=== PATIENT | male | born 1945 | race Caucasian/White ===

== ENCOUNTER 2021-07-01 09:35 | Observation (INO) | payer OTHER ==
[~2021-07-01] VITALS: Ht 177.8 cm; Wt 106.6 kg
[2021-07-01 10:39] LABS: HEMATOCRIT 45.9 % (42.0-52.0); HEMOGLOBIN 14.8 gm/dL (14.0-18.0); MCH 28.6 pg (26.0-34.0); MCHC 32.3 g/dL (28.0-37.0); MCV 88.5 fL (80.0-100.0); RBC 5.19 mil/uL (4.50-6.00); RDW 14.1 % (10.5-14.5); WBC 8.2 thou/uL (4.0-11.0)
[2021-07-01 10:45] LABS: CALCIUM 9.1 mg/dL (8.5-10.1); CREATININE 1.3 mg/dL (0.7-1.3); POTASSIUM 4.3 mmol/L (3.5-5.1)
[2021-07-01] MEDS ORDERED: ASA81BEC PO (11:26)
[2021-07-01] MEDS ORDERED: AMARYL4 MG PO (11:26)
[2021-07-01] MEDS ORDERED: LANTUS SUBQ (11:27)
[2021-07-01] MEDS ORDERED: SUPER THERAVIT1 EACH PO (11:27)
[2021-07-01] MEDS ORDERED: LISINOPRIL20 MG PO (11:27)
[2021-07-01] MEDS ORDERED: WEGOVY0.25 MG/0. SUBQ (11:28)
[2021-07-01] MEDS ORDERED: EFFIENT10 MG PO (12:52)
[2021-07-01] MEDS ORDERED: CRESTOR20 MG PO (12:52)
[2021-07-01] MEDS ORDERED: TOPROL XL25 MG PO (12:58)
[2021-07-01 17:10] VITALS: BP 130/66
[2021-07-01 19:27] VITALS: BP 138/59
--- NOTE | 2021-07-01 19:53 | NUR ---
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 ADMISSION COMPLETED. PT IS AXOX4, PLEASANT; VSS, AFEBRILE, SR ON THE MONITOR. PT R GROIN SITE, C/D/I, NO HEMATOMA. PT BEDREST COMPLETED WHILE IN RECOVERY. PT CALLED AND DISCUSSED POSS D/C TIME IN THE AM. POC IS TO CONTINUE TO MONITOR VS, GROIN SITE. PT TO D/C IN AM PER MD. CARDIAC MEDS TO RESTART IN AM. LOW FALL PRECAUTIONS IN PLACE. NO CONCERNS AT THIS TIME.
[2021-07-01 23:24] VITALS: BP 141/52
[2021-07-02 03:01] VITALS: BP 127/66
--- NOTE | 2021-07-02 03:58 | NUR ---
RECEIVED THIS PATIENT AT 1900H.PATIENT IS ALERT AND ORIENTED X4.ON ROOM AIR BREATHING SPONTANEOUSLY.NOT IN PAIN OR DISTRESS.WITH POST CATH SITE AT RIGHT GROIN C/D/I.ALL NEEDS ATTENDED.TO CONTINOUSLY MONITOR.
[2021-07-02 05:03] LABS: HEMATOCRIT 41.8 % (42.0-52.0); HEMOGLOBIN 13.7 gm/dL (14.0-18.0); MCH 28.7 pg (26.0-34.0); MCHC 32.8 g/dL (28.0-37.0); MCV 87.6 fL (80.0-100.0); RBC 4.77 mil/uL (4.50-6.00); WBC 7.4 thou/uL (4.0-11.0)
[2021-07-02 05:18] LABS: CALCIUM 8.5 mg/dL (8.5-10.1); CREATININE 1.2 mg/dL (0.7-1.3); TOTAL BILIRUBIN 0.9 mg/dL (0.2-1.0); TOTAL PROTEIN 6.6 g/dL (6.4-8.2)
[2021-07-02 07:13] VITALS: BP 135/69
--- NOTE | 2021-07-02 07:45 | EKG ---
[place] [address] [facility] [place] [address] ELECTROCARDIOGRAM REPORT Name: WOLFGANG ESQUIVEL Room #: 202-[facility] M.R.#: [id number] Admission: 07/01/21 Attend Phys: Vamshi Tellez MD, Discharge: Date of : 43 Report #: [id number] 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
[2021-07-02 08:23] VITALS: BP 135/69
--- NOTE | 2021-07-02 09:27 | 2DMMODE ---
[facility] [place] [address] 2 D/M-MODE ECHOCARDIOGRAM Name: WOLFGANG ESQUIVEL Room #: 202-P ADM Justen M.R.#: [id number] Admission: 07/01/21 Attend Phys: Vamshi Tellez MD, Discharge: Date of : 43 Report #: [id number] THIS REPORT FOR: cc: DENNIS FERNANDO FAMILY PHYSICIAN or PCP Nicolas Nguyen MD [facility] ~ APPROVED REPORT Study performed: 07/02/2021 08:37:14 EXAM: Comprehensive 2D, Doppler, and color-flow Echocardiogram Patient Location: Bedside Room #: 202 Status: routine BSA: 2.24 HR: 89 bpm BP: 135/69 mmHg Rhythm: NSR Other Information Study Quality: Adequate Indications CAD Chest Pain S^P STENT 2D Dimensions IVSd: 11.66 (7-11mm) LVOT Diam: 23.09 (18-24mm) LVDd: 44.38 mm PWd: 12.09 (7-11mm) Ascending Ao: 33.37 (22-36mm) LVDs: 27.29 (25-40mm) Left Atrium: 32.73 (27-40mm) Aortic Root: 32.19 mm IVC: 13.00 mm Volumes Left Atrial Volume (Systole) Single Plane 4CH: 30.53 mL Single Plane 2CH: 38.94 mL LA ESV Index: 19.00 mL/m2 Aortic Valve AoV Peak Yossi.: 1.15 m/s AO Peak Gr.: 5.25 mmHg LVOT Max P.06 mmHg LVOT Max V: 0.87 m/s [facility] [address] [place] [address] 2 D/M-MODE ECHOCARDIOGRAM Name: WOLFGANG ESQUIVEL Room #: 202-P [facility]#: [id number] Admission: 07/01/21 Attend Phys: Vamshi Tellez, Discharge: Date of : 43 Report #: [id number] TOBIN Vmax: 3.19 cm2 Mitral Valve E/A Ratio: 0.7 MV Decel. Time: 226.38 ms MV E Max Yossi.: 0.58 m/s MV A Yossi.: 0.87 m/s MV PHT: 65.65 ms IVRT: 115.34 ms Pulmonary Valve PV Peak Yossi.: 0.83 m/s PV Peak Gr.: 2.73 mmHg Pulmonary Vein P Vein S: 0.24 m/s P Vein A: 0.21 m/s P Vein D: 0.14 m/s P Vein A Dur.: 120.0 msec P Vein S/D Ratio: 1.71 Left Ventricle The left ventricle is normal size. There is normal LV segmental wall motion. There is normal left ventricular wall thickness. Left ventricular systolic function is normal. The left ventricular ejection fraction is within the normal range. LVEF is 60-65%. Grade I - abnormal relaxation pattern. Right Ventricle The right ventricle is normal size. The right ventricular systolic function is normal. Atria The left atrium size is normal. The right atrium size is normal. Aortic Valve The aortic valve is normal in structure. No aortic regurgitation is present. There is no aortic valvular stenosis. Mitral Valve The mitral valve is normal in structure. There is no mitral valve regurgitation noted. No evidence of mitral valve stenosis. Tricuspid Valve The tricuspid valve is normal in structure. There is no tricuspid valve regurgitation noted. Pulmonic Valve [facility] [place] [address] 2 D/M-MODE ECHOCARDIOGRAM Name: WOLFGANG ESQUIVEL Room #: 202-P [facility] [place] .R.#: [id number] Admission: 07/01/21 Attend Phys: Vamshi Tellez, Discharge: Date of : 43 Report #: [id number] The pulmonary valve is normal in structure. There is no pulmonic valvular regurgitation. Great Vessels The aortic root is normal in size. IVC is normal in size and collapses >50% with inspiration. Pericardium There is no pericardial effusion. <Conclusion> Normal left ventricle size/wall thickness Ejection fraction 60% Grade 1 diastolic dysfunction Normal right ventricle size/function Normal atrial size Aortic valve sclerosis without stenosis Normal mitral valve structure and function No tricuspid valve insufficiency No pericardial effusion Normal aortic root size. <ELECTRONICALLY SIGNED> By: Nicolas Nguyen MD, FACC 07/02/21925 5 5 Nicolas Nguyen MD, [facility] /INF
[2021-07-02 11:24] VITALS: BP 149/61
[2021-07-02 11:30] VITALS: BP 135/69
--- NOTE | 2021-07-02 12:26 | NUR ---
DISCHARGED PATIENT. EXPLAINED DISCHARGE INSTRUCTIONS TO PATIENT AND SPOUSE. HIGHLIGHTED UPCOMING APPOINTMENTS AND MEDICATION CHANGES. PATIENT AND SPOUSE STATED THEY UNDERSTOOD AND DID NOT HAVE ANY FURTHER QUESTIONS. 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
[2021-07-02 13:07] VITALS: BP 135/69
--- NOTE | 2021-07-09 17:14 | CATHLAB ---
[facility] [place] [address] INVASIVE PROCEDURE REPORT Name: WOLFGANG ESQUIVEL Room #: 202-P [facility] Justen Mandujano#: [id number] Admission: 07/01/21 Attend Phys: Vamshi Tellez MD, Discharge: 07/02/21 Date of : 43 Report #: [id number] THIS REPORT FOR: cc: DENNIS FERNANDO FAMILY PHYSICIAN or PCP Vamshi Tellez MD [facility] ~ APPROVED REPORT Study performed: 07/01/2021 10:17:25 Patient Details Patient Status: Out-Patient Room #: The patient is a 76 year-old male Event Personnel Vamshi Tellez Teletypesetter, Janae Knapp RTR Monitor, Katy Rivera RTR, BIKE ASSEMBLER Dylon Lopez Jessica RN RN, Fredrick Colon RN RN, Deann Bacon RTR Technology Training Associate Procedures Performed Art Access - R femoral artery* Left Heart Cath w/or w/o Coronaries [id number] [facility] Aortogram Abdominal Peripheral Angio 730967 YASEMIN Place w/wo Plasty Single LAD 682933 Hemostasis w/ Mynx 17632 Initial Mod Sed Same Phys/QHP Gr5y 892986 54126 Mod Sed Same Phys/QHP Ea 540776 Procedure Narrative The Right Groin^ was infiltrated with 1% Lidocaine subcutaneous anesthesia. A PINNACLE 6FR Sheath #[id number] sheath was inserted into the RFA^. Coronary angiography was performed using coronary diagnostic catheters. The right coronary system was accessed and visualized with a JR4 catheter. The left coronary system was accessed and visualized with a JL4 catheter. The left ventricle was accessed and visualized with a STRAIGHT PIGTAIL catheter. Left ventriculogram was performed in 30 degree projection. An aortogram of the abdominal aorta was performed. Closure device was deployed with a Fr MYNXGRIP 6/7F #[id number]. The patient tolerated the procedure well and there were no complications associated with the procedure. There was no hematoma. Intraoperative Conscious Sedation Sedation start time: 11:35 Case end Time: 12:34 Fentanyl 50 mcg Versed [address] [address] INVASIVE PROCEDURE REPORT Name: ESQUIVELWOLFGANG Room #: 202-P [facility]#: [id number] Admission: 07/01/21 Attend Phys: Vamshi Tellez, Discharge: 07/02/21 Date of : 43 Report #: [id number] Fluoro Time: 10.38 minutes Dose: DAP 57981.80 cGycm2 1844 mGy Contrast Type and Amount: Visipaque 205 ml Hemodynamics The aortic pressure is 156/71 mmHg with a mean of 100 mmHg. The left ventricular pressure is 164/5 mmHg with a mean of mmHg. The left ventricular end diastolic pressure is 12 mmHg. PCI Technique Lesion Percutaneous coronary intervention was performed on the proximal left anterior descending artery segment. A LAUNCHER 6FR EBU 3.75 #[id number] Guide Catheter was used to engage the ostium. A Luge Wire .014 x 182CM #[id number] Interventional Guidewire was used to cross the lesion. BALLOON DILATION A Balloon catheter Sprinter OTW 2.75 x 12 #[id number] was inserted and inflated up to 14.00atm for 28seconds. Additional Inflation: 16.00atm for 22seconds. STENT DEPLOYMENT A drug-eluting stent RESOLUTE DELORES OTW 3.5 X 12 #[id number] was inserted and inflated up to 14.00atm for 27seconds. Additional Inflation: 18.00atm for 26seconds. Conclusion #1 Successful PTCA stent of a distal left main ostial LAD 98% stenosis placement of a 3.5 x 12 resolute which extended from distal left main to LAD LIA grade III flow. Jailing of the circumflex remained widely patent and brisk flow. #2 proximal left main with a 30% irregularity. #3 circumflex OM nondominant with mild disease. It was jailed by the stent without any significant impedance and flow into the nondominant circumflex. #4 dominant right coronary artery with a significant calcified segment in the proximal at a tortuous turn. And then a mid vessel 95% it is dominant but relatively small in caliber overall. I made a limited attempt at crossing the proximal segment will need better guide support possibly guide liner and/or dual wire to get to the mid vessel lesion. This is not the culprit and we will follow this in the office in the next month or so about possible intervention or continued medical therapy. High risk nature of the intervention here would not want to cause any hemodynamic compromise will wait for possible intervention at later date. [facility] [address] [place] [address] INVASIVE PROCEDURE REPORT Name: WOLFGANG ESQUIVEL #: 202-P [facility] M.R.#: [id number] Admission: 07/01/21 Attend Phys: Vamshi Tellez, Discharge: 07/02/21 Date of : 43 Report #: [id number] #5 normal left ventricular size systolic function is normal 60%. 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 Will obtain noninvasive imaging for more accurate calculation of size. Recommendations and plan: Continue aggressive risk factor modification. Dual antiplatelet therapy has been initiated. Patient transferred to CCU in stable condition resolution of EKG changes and pain-free. <ELECTRONICALLY SIGNED> By: Vamshi Tellez MD, FACC 07/09/211712 12 12 Vamshi Tellez MD, FACC /INF
== END 2021-07-02 13:20 | disposition home or self-care (01) ==
LOC: CATH 09:35 → 2N 14:05 → CATH 18:07 → 2N 18:09
PROVIDERS: Nurse Practitioner Adult Health; ADMIT Internal Medicine Cardiovascular Disease; ATTEND Internal Medicine Cardiovascular Disease
DX: I25.10 Atherosclerotic heart disease of native coronary artery without angina pectoris (principal); E78.5 Hyperlipidemia, unspecified; I10 Essential (primary) hypertension; E11.9 Type 2 diabetes mellitus without complications; E78.00 Pure hypercholesterolemia, unspecified; Z88.0 Allergy status to penicillin; Z88.1 Allergy status to other antibiotic agents

== ENCOUNTER → 2021-07-30 | Outpatient (CLI) | payer OTHER ==
[~2021-07-30] MED LIST: AMARYL4 MG PO; ASA81BEC PO; CRESTOR20 MG PO; EFFIENT10 MG PO; LANTUS SUBQ; LISINOPRIL20 MG PO; SUPER THERAVIT1 EACH PO; TOPROL XL25 MG PO; WEGOVY0.25 MG/0. SUBQ
== END ==
LOC: SJCVCIMAG 10:24
PROVIDERS: ATTEND Internal Medicine Cardiovascular Disease
DX: R94.31 Abnormal electrocardiogram [ECG] [EKG] (principal); I49.1 Atrial premature depolarization; I71.4 Abdominal aortic aneurysm, without rupture; I25.10 Atherosclerotic heart disease of native coronary artery without angina pectoris; I10 Essential (primary) hypertension; E11.9 Type 2 diabetes mellitus without complications; E78.00 Pure hypercholesterolemia, unspecified; R07.9 Chest pain, unspecified; Z82.49 Family history of ischemic heart disease and other diseases of the circulatory system; Z90.49 Acquired absence of other specified parts of digestive tract; Z98.890 Other specified postprocedural states; Z79.82 Long term (current) use of aspirin; Z79.899 Other long term (current) drug therapy; Z88.0 Allergy status to penicillin; Z88.8 Allergy status to other drugs, medicaments and biological substances

== ENCOUNTER 2021-08-12 07:00 | Observation (INO) | payer OTHER ==
[~2021-08-12] VITALS: Ht 177.8 cm; Wt 103.9 kg
[2021-08-12 07:51] VITALS: BP 158/76
[2021-08-12 08:03] LABS: HEMATOCRIT 42.3 % (42.0-52.0); HEMOGLOBIN 13.9 gm/dL (14.0-18.0); MCH 28.4 pg (26.0-34.0); MCHC 32.9 g/dL (28.0-37.0); MCV 86.3 fL (80.0-100.0); RBC 4.9 mil/uL (4.50-6.00); RDW 14.1 % (10.5-14.5); WBC 9.1 thou/uL (4.0-11.0)
--- NOTE | 2021-08-12 08:03 | EKG ---
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: : 1945 Requested By: Vamshi Tellez Order Number: [id number] MD: Luis Duncan Measurements Intervals [place] Rate: 80 P: 68 NH: 198 QRS: 10 QRSD: 91 T: 54 QT: 395 QTc: 456 Interpretive Statements Sinus rhythm Frequent premature atrial complexes Minimal ST depression, lateral leads Compared to ECG 07/02/2021 07:23:54 No significant change was found Electronically Signed On 08-12-2021 8:03:05 GREEN END WORKER by Luis Duncan [email or web address] <ELECTRONICALLY SIGNED> By: Luis Duncan MD, [facility] 08/12/21 08 0735 4 Luis Duncan MD, FACC /EPI
[2021-08-12 08:30] LABS: CALCIUM 9.2 mg/dL (8.5-10.1); CREATININE 1.4 mg/dL (0.7-1.3); POTASSIUM 4.3 mmol/L (3.5-5.1)
--- NOTE | 2021-08-12 09:50 | NUR ---
PT TO CV HOLDING RM 1 A/OX3 WITH NO C/O. MONITOR APPLYED AND PT HAS NO FURTHER REQUEST AT THIS TIME.
--- NOTE | 2021-08-12 10:08 | NUR ---
BREAKFEAST TRAY PROVIDED. PTS AT BEDSIDE.
--- NOTE | 2021-08-12 17:37 | CATHLAB ---
[facility] [place] [address] INVASIVE PROCEDURE REPORT Name: WOLFGANG ESQUIVEL Room #: 214-P [facility] Justen Mandujano#: [id number] Admission: 08/12/21 Attend Phys: Vamshi Tellez MD, Discharge: Date of : 43 Report #: [id number] THIS REPORT FOR: cc: NO FAMILY PHYSICIAN or PCP NO FAMILY PHYSICIAN or PCP Vamshi Tellez MD [facility] ~ APPROVED REPORT Study performed: 08/12/2021 07:33:46 Patient Details Patient Status: Out-Patient Room #: The patient is a 76 year-old male Event Personnel Vamshi Tellez Suspension Cord Tier, Deann Bacon RTR Monitor, Katy Rivera RTR, FUR BLOWING MACHINE OPERATOR Monitor, Janae Knapp RTR Scrub, Fredrick Colon RN training intern Performed YASEMIN Place w/wo Plasty Single RCA 304555 Coronary Angiography Only 9908591 [facility] Art Access - R femoral artery* Hemostasis w/ Mynx 19813 Initial Mod Sed Same Phys/QHP Gr5y 464265 03140 Mod Sed Same Phys/QHP Ea 857721 Indication Chest pain Procedure Narrative The Right Groin^ was infiltrated with 1% Lidocaine subcutaneous anesthesia. A 6 FR sheath was inserted into the RFA^. Coronary angiography was performed using coronary diagnostic catheters. The right coronary system was accessed and visualized with a LAUNCHER 6FR JACQUELINE #[id number] catheter. The left coronary system was accessed and visualized with a 6FR JL4 #664960 catheter. Closure device was deployed with a 6 Fr MYNXGRIP 6/7F #[id number]. The patient tolerated the procedure well and there were no complications associated with the procedure. There was no hematoma. Intraoperative Conscious Sedation Sedation start time: 843 Case end Time: 935 Fentanyl 75 mcg Versed 3.[address] [address] INVASIVE PROCEDURE REPORT Name: WOLFGANG ESQUIVEL Room #: 214-P [facility] IN ..#: [id number] Admission: 08/12/21 Attend Phys: Vamshi Tellez, Discharge: Date of : 43 Report #: [id number] Fluoro Time: 11.56 minutes Dose: DAP 73558.30 cGycm2 1584 mGy Contrast Type and Amount: Visipaque 120 ml Hemodynamics The aortic pressure is 147/70 mmHg with a mean of 94 mmHg. PCI Technique Lesion Percutaneous coronary intervention was performed on the mid right coronary artery. A LAUNCHER 6FR JACQUELINE #331300 Guide Catheter was used to engage the ostium. A Luge Wire .014 x 182CM #[id number] Interventional Guidewire was used to cross the lesion. BALLOON DILATION A Balloon catheter Sprinter OTW 2.5 x 12 #[id number] was inserted and inflated up to 8.00atm for 8seconds. Additional Inflation: 14.00atm for 22seconds. Additional Inflation: 16.00atm for 34seconds. STENT DEPLOYMENT A drug-eluting stent RESOLUTE DELORES OTW 2.75 X 8 #[id number] was inserted and inflated up to 18.00atm for 31seconds. Conclusion #1 Successful PTCA stent of a subtotaled mid RCA stenosis. Complicated by proximal tortuosity and calcification moderate proximal narrowing. Multiple wires and guides were utilized. Eventually placement of a 2.75 x 8 resolute Oxford stent postdilated 3.0 mm LIA grade III flow. The proximals calcified segment remains in the 60 to 70% range did not intervene in that proximal segment. It is not flow-limiting. #2 left main free of disease giving rise to LAD and circumflex. #3 the LAD extends to the apex there is a recently placed proximal stent placed in June 2021 remains widely patent and this vessel is widely patent around the apex. #4 small nondominant circumflex artery no occlusive disease Recommendations and plan: Continue aggressive risk factor modification. Continue dual antiplatelet therapy. Patient has resolution of EKG and chest pain changes. Transfer to CCU to follow post coronary stent protocol hemodynamically stable. Proximal RCA segment is calcified and moderately diseased we will continue to treat this medically. It could be intervened on we will [address] [address] INVASIVE PROCEDURE REPORT Name: WOLFGANG ESQUIVEL Room #: 214-P [facility] IN M.R.#: [id number] Admission: 08/12/21 Attend Phys: Vamshi Tellez, Discharge: Date of : 43 Report #: [id number] follow this up with stress testing suspect this is now nonischemic with the mid vessel stent placement. <ELECTRONICALLY SIGNED> By: Vamshi Tellez MD, FACC 08/12/21 1737 36 173 Vamshi Tellez MD, FACC /INF
[2021-08-12 20:11] VITALS: BP 150/94
[2021-08-13 00:25] VITALS: BP 142/74
[2021-08-13 03:48] LABS: HEMOGLOBIN 13.1 gm/dL (14.0-18.0); MCH 28.4 pg (26.0-34.0); MCHC 32.8 g/dL (28.0-37.0); MCV 86.5 fL (80.0-100.0); RBC 4.63 mil/uL (4.50-6.00); RDW 14.4 % (10.5-14.5); WBC 9.9 thou/uL (4.0-11.0)
[2021-08-13 04:44] VITALS: BP 135/61
[2021-08-13 05:12] LABS: ALBUMIN 3.1 g/dL (3.4-5.0); CALCIUM 8.4 mg/dL (8.5-10.1); CREATININE 1.2 mg/dL (0.7-1.3); POTASSIUM 4.4 mmol/L (3.5-5.1); TOTAL BILIRUBIN 0.8 mg/dL (0.2-1.0); TOTAL PROTEIN 6.5 g/dL (6.4-8.2)
[2021-08-13 07:30] VITALS: BP 142/73
--- NOTE | 2021-08-13 07:40 | NUR ---
ALERT AND ORIENTED, SA ON TELE, DENIES GIUSEPPE RAidan GROIN SITE CDI, NO HEMATOMA, VSS, NO DISTRESS NOTED, PASSED ON REPORT TO DAY RN
--- NOTE | 2021-08-13 08:04 | EKG ---
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
[2021-08-13 08:51] VITALS: BP 142/73
--- NOTE | 2021-08-13 11:33 | NUR ---
PATIENT DISCHARGED HOME WITH PROVIDING TRANSPORTATION. ALL PERSONAL BELONGINGS SENT WITH PATIENT. PATIENT ACCOMPANIED TO FROM DOOR BY NURSE VIA WHEELCHAIR. PATIENT VERBILIZED UNDERSTANDING OF DISCHARGE INSTRUCTIONS AND FOLLOW UP APPOINTMENT INFORMATION PROVIDED. PATIENT WAS GIVEN THE OPORTUNITY TO ASK QUESTIONS. ALL QUESTIONS AWNSERED TO PATIENT SATISFACTION. PATIENT IN STABLE CONDITION UPON DISCHARGE.
== END 2021-08-13 11:15 | disposition home or self-care (01) ==
LOC: CATH 07:00 → 2N 15:31 → CATH 15:43 → 2N 08-13 11:15
PROVIDERS: Nurse Practitioner Adult Health; ADMIT Internal Medicine Cardiovascular Disease; ATTEND Internal Medicine Cardiovascular Disease
DX: I25.10 Atherosclerotic heart disease of native coronary artery without angina pectoris (principal); I10 Essential (primary) hypertension; E11.9 Type 2 diabetes mellitus without complications; E78.00 Pure hypercholesterolemia, unspecified; Z79.82 Long term (current) use of aspirin; Z79.4 Long term (current) use of insulin; Z79.899 Other long term (current) drug therapy; Z88.0 Allergy status to penicillin; Z88.1 Allergy status to other antibiotic agents